=== PATIENT | female | born 1950 | race African-American/Black ===

== ENCOUNTER 2018-11-30 05:21 | Day surgery (SDC) | payer MEDICARE, MEDICAID ==
[~2018-11-30] VITALS: Ht 168.9 cm; Wt 78.9 kg
[~2018-11-30 05:21] MED LIST: ALLO100T PO; BUSP10TA3 PO; CHOL500010 PO; DIPH25CA83 PO; LISI10TA5 PO; LORA0.5T2 PO; LORA10TA7 PO; METH500T PO; OXYB5TAB11 PO; PROP10TA10 PO; RANI150T7 PO; TRAM50TA3 PO; VENL-180 PO; ZIPR40CA2 PO
[2018-11-30] MEDS ORDERED: LACTATED RINGERS 1,000 ML IV SCH (06:21)
[2018-11-30] MEDS ORDERED: LISI40TA4 PO (06:59)
[2018-11-30] MEDS ORDERED: TERB250T51 PO (06:59)
[2018-11-30] MEDS ORDERED: CLON0.5T PO (06:59)
[2018-11-30] MEDS ORDERED: CALC-25 PO (06:59)
[2018-11-30] MEDS ORDERED: LIDOCAINE HCL/PF 1% 10 MG/ML 5ML VIAL ONE (07:16)
[2018-11-30] MEDS ORDERED: MIDAZOLAM HCL 2 MG/2 ML VIAL ONE (07:16)
[2018-11-30] MEDS ORDERED: PROPOFOL 200MG/20ML VIAL IV ONE (07:16)
[2018-11-30] MEDS ORDERED: FENTANYL CITRATE/PF 50MCG/ML 2ML VIAL ONE (07:16)
[2018-11-30 07:50] LABS: BASOPHILS % 0.5 % (0.0-2.0); EOSINOPHILS % 3.1 % (0.0-5.0); HEMATOCRIT. 32.2 % (36.0-48.0); HEMOGLOBIN. 10.9 g/dL (12.0-16.0); LYMPHOCYTES % 45.9 % (20.0-50.0); MEAN CORPUSCULAR HEMOGLOBIN 32.8 pg (28.0-32.0); MEAN PLATELET VOLUME 9.5 fl (7.4-10.4); MONOCYTES % 9.7 % (2.0-8.0); NEUTROPHILS % 40.8 % (40.0-76.0); PLATELET 198 x1000/uL (130-400); RED BLOOD CELL COUNT 3.32 mill/uL (4.2-5.4); RED CELL DISTRIBUTION WIDTH 13.1 % (11.6-14.6)
[2018-11-30 07:51] LABS: CLARITY URINE CLOUDY (CLEAR); COLOR URINE YELLOW (YELLOW); KETONES URINE NEGATIVE (NEGATIVE); LEUKOCYTE ESTERASE URINE 3+ (NEGATIVE); NITRITE URINE NEGATIVE (NEGATIVE); OCCULT BLOOD URINE NEGATIVE (NEGATIVE); PH URINE 5.5 (4.5-8.0); PROTEIN URINE NEGATIVE (NEGATIVE); SPECIFIC GRAVITY URINE 1.016 (1.005-1.030); UROBILINOGEN URINE 0.2 E.U./dL (0.2-1.0)
[2018-11-30 07:57] LABS: CHLORIDE 108 mEq/L (98-107)
[2018-11-30 08:02] LABS: PARTIAL THROMBOPLASTIN TIME 28.9 sec (23.4-31.0); PROTHROMBIN TIME 10.8 sec (9.6-11.0)
[2018-11-30] MEDS ORDERED: CEFAZOLIN SODIUM 1000MG/VIAL ONE (08:08)
== END 2018-11-30 11:05 | disposition home or self-care (01) ==
LOC: OR 05:21
PROVIDERS: ATTEND Obstetrics & Gynecology Obstetrics
DX: N84.0 Polyp of corpus uteri (principal); R94.31 Abnormal electrocardiogram [ECG] [EKG]; F17.210 Nicotine dependence, cigarettes, uncomplicated; Z78.0 Asymptomatic menopausal state; Z79.01 Long term (current) use of anticoagulants; Z79.899 Other long term (current) drug therapy; Z72.89 Other problems related to lifestyle; Z88.2 Allergy status to sulfonamides; Z82.49 Family history of ischemic heart disease and other diseases of the circulatory system; Z83.3 Family history of diabetes mellitus
CPT/HCPCS: 36415; 58558; 80053; 81003; 85025; 85610; 85730; 87086; 88305; 93005; J0690; J2250; J2704; J3010; J3490

== ENCOUNTER 2019-04-24 05:29 | Inpatient (IN) | payer MEDICARE, MEDICAID ==
[~2019-04-24] VITALS: Ht 172.7 cm; Wt 89.4 kg
[~2019-04-24 05:29] MED LIST changes: -BUSP10TA3 PO; +CALC-25 PO; +CLON0.5T PO; -LISI10TA5 PO; +LISI40TA4 PO; -LORA0.5T2 PO; -OXYB5TAB11 PO; +OXYB5TAB16 PO; +TERB250T51 PO
[2019-04-24] MEDS ORDERED: LACTATED RINGERS 1,000 ML IV SCH ×2 (06:30→11:24)
[2019-04-24] MEDS ORDERED: METHYLENE BLUE 50 MG/10 ML AMP IV ONE (06:41)
[2019-04-24] MEDS ORDERED: SKIN ADHESIVE 0.7 GM EA TOP ONE (06:41)
[2019-04-24] MEDS ORDERED: BUPIVACAINE HCL/PF 0.5% (5MG/ML) 10ML ONE (06:42)
[2019-04-24] MEDS ORDERED: VASOPRESSIN 20 UNIT/ML 1ML ONE (06:42)
[2019-04-24] MEDS ORDERED: FENTANYL CITRATE/PF 50MCG/ML 2ML VIAL ONE (07:21)
[2019-04-24] MEDS ORDERED: NEOSTIGMINE METHYLSULFATE 1MG/ML 10 ML VIAL ONE (07:22)
[2019-04-24] MEDS ORDERED: MIDAZOLAM HCL 2 MG/2 ML VIAL ONE (07:22)
[2019-04-24] MEDS ORDERED: ROCURONIUM BROMIDE 10MG/ML VIAL 5ML IV ONE (07:22)
[2019-04-24] MEDS ORDERED: PROPOFOL 200MG/20ML VIAL IV ONE (07:22)
[2019-04-24] MEDS ORDERED: GLYCOPYRROLATE 0.2 MG/ML 2ML VIAL ONE ×3 (07:22→11:03)
[2019-04-24] MEDS ORDERED: DEXAMETHASONE 4MG/ML 1ML VIAL ONE (07:24)
[2019-04-24] MEDS ORDERED: ONDANSETRON HCL 4MG/2ML INJ ONE (07:24)
[2019-04-24] MEDS ORDERED: LABETALOL 5MG/ML SYR 20 MG/4 ML SYRINGE IV PRN (08:15)
[2019-04-24] MEDS ORDERED: MEPERIDINE HCL/PF 25MG/ML CPJ IV PRN (08:15)
[2019-04-24] MEDS ORDERED: ONDANSETRON HCL 4MG/2ML INJ IV PRN (08:15)
[2019-04-24] MEDS ORDERED: HYDROMORPHONE HCL/PF 2MG/ML CPJ IV PRN (08:15)
[2019-04-24] MEDS ORDERED: BACITRACIN 15GM TUBE TOP ONE (10:56)
[2019-04-24] MEDS ORDERED: HYDRALAZINE 20MG/ML VIAL ONE (11:13)
[2019-04-24] MEDS ORDERED: SODIUM CHLORIDE 0.9% 10ML VIAL ONE (11:13)
[2019-04-24] MEDS ORDERED: LIDOCAINE HCL/PF 1% 10 MG/ML 5ML VIAL ONE (11:13)
[2019-04-24] MEDS ORDERED: CEFAZOLIN SODIUM 1000MG/VIAL ONE (11:13)
[2019-04-24] MEDS ORDERED: EPHEDRINE SULFATE 50MG/ML VIAL ONE (11:13)
[2019-04-24] MEDS ORDERED: HYDROMORPHONE PCA 10MG/50ML IV PRN (11:38)
[2019-04-24] MEDS ORDERED: NALOXONE INJ IV PRN (11:45)
[2019-04-24] MEDS ORDERED: ONDANSETRON INJ IV PRN (11:45)
[2019-04-24] MEDS ORDERED: DIPHENHYDRAMINE INJ IV PRN (11:45)
[2019-04-24 12:00] VITALS: BP 108/55
[2019-04-24 14:15] VITALS: BP 133/61
[2019-04-24 16:00] VITALS: BP 91/57
[2019-04-24 20:00] VITALS: BP 108/60
[2019-04-25] VITALS: BP 133/59
[2019-04-25 04:00] VITALS: BP 119/62
[2019-04-25 06:06] LABS: BASOPHILS % 0.1 % (0.0-2.0); HEMATOCRIT. 29.4 % (36.0-48.0); HEMOGLOBIN. 9.9 g/dL (12.0-16.0); MEAN CORPUSCULAR HEMOGLOBIN 33.2 pg (28.0-32.0); MEAN CORPUSCULAR VOLUME 98.6 fL (81.0-99.0); MEAN PLATELET VOLUME 9.8 fl (7.4-10.4); NEUTROPHILS % 78.9 % (40.0-76.0); PLATELET 206 x1000/uL (130-400); RED BLOOD CELL COUNT 2.98 mill/uL (4.2-5.4)
[2019-04-25 08:00] VITALS: BP 143/72
[2019-04-25] MEDS ORDERED: MEDICATION NOT ON FORMULARY EA (Cholecalciferol (Vitamin D3) (Vitamin D3) 2,000 UNIT) PO SCH (09:15)
[2019-04-25] MEDS ORDERED: TRAMADOL 50MG TABLET PO PRN ×2 (09:15→18:15)
[2019-04-25] MEDS ORDERED: LORATADINE 10MG TABLET PO SCH (09:15)
[2019-04-25] MEDS ORDERED: CLONAZEPAM 0.5MG TABLET PO SCH (09:15)
[2019-04-25] MEDS ORDERED: DIPHENHYDRAMINE 25MG CAPSULE PO SCH (09:15)
[2019-04-25] MEDS ORDERED: MEDICATION NOT ON FORMULARY EA (Ranitidine Hcl 150 MG) PO SCH (09:15)
[2019-04-25] MEDS: LISINOPRIL 40MG TABLET PO SCH (10:43)
[2019-04-25] MEDS: CALCIUM CARBONATE 1250MG TABLET (500MG ELEMENTAL CALCIUM) PO SCH (10:43)
[2019-04-25] MEDS: ALLOPURINOL 100 MG TABLET PO SCH (10:44)
[2019-04-25] MEDS: OXYBUTYNIN CHLORIDE 5MG TABLET PO SCH ×3 (10:44→16:09)
[2019-04-25] MEDS: METHOCARBAMOL 500MG TABLET PO SCH ×3 (10:44→16:09)
[2019-04-25] MEDS: PROPRANOLOL HCL 10MG TABLET PO SCH ×2 (10:44→20:23)
[2019-04-25] MEDS ORDERED: TERBINAFINE HCL 250MG TABLET PO SCH (11:00)
[2019-04-25 12:00] VITALS: BP 120/65
[2019-04-25] MEDS: TERBINAFINE HCL 250MG TABLET PO SCH (15:18)
[2019-04-25 16:00] VITALS: BP 122/68
[2019-04-25] MEDS: CHOLECALCIFEROL (D3) 1000 UNIT TABLET PO SCH (16:09)
[2019-04-25] MEDS: FAMOTIDINE 20MG TABLET PO SCH (16:09)
[2019-04-25] MEDS: VENLAFAXINE HCL 37.5MG TABLET PO SCH (16:12)
[2019-04-25] MEDS ORDERED: CLONAZEPAM 0.5MG TABLET PO PRN (18:15)
[2019-04-25] MEDS ORDERED: LORATADINE 10MG TABLET PO PRN (18:15)
[2019-04-25 20:00] VITALS: BP 110/60
[2019-04-25] MEDS ORDERED: VENLAFAXINE HCL 50MG TABLET PO SCH ×2 (21:00)
[2019-04-25] MEDS ORDERED: DIPHENHYDRAMINE 25MG CAPSULE PO PRN (21:00)
[2019-04-25] MEDS ORDERED: ZIPRASIDONE HCL 20MG CAPSULE PO SCH (21:00)
[2019-04-26] VITALS: BP 129/63
[2019-04-26 04:00] VITALS: BP 131/66
[2019-04-26 08:00] VITALS: BP 130/58
[2019-04-26] MEDS: OXYBUTYNIN CHLORIDE 5MG TABLET PO SCH (08:46)
[2019-04-26] MEDS: PROPRANOLOL HCL 10MG TABLET PO SCH (08:46)
[2019-04-26] MEDS: VENLAFAXINE HCL 37.5MG TABLET PO SCH (08:46)
[2019-04-26] MEDS: ALLOPURINOL 100 MG TABLET PO SCH (08:47)
[2019-04-26] MEDS: TERBINAFINE HCL 250MG TABLET PO SCH (08:47)
[2019-04-26] MEDS: METHOCARBAMOL 500MG TABLET PO SCH (08:47)
[2019-04-26] MEDS: CHOLECALCIFEROL (D3) 1000 UNIT TABLET PO SCH (08:47)
[2019-04-26] MEDS: FAMOTIDINE 20MG TABLET PO SCH (08:47)
[2019-04-26] MEDS: CALCIUM CARBONATE 1250MG TABLET (500MG ELEMENTAL CALCIUM) PO SCH (08:47)
[2019-04-26] MEDS: LISINOPRIL 40MG TABLET PO SCH (08:47)
[2019-04-26 11:04] VITALS: BP 100/61
== END 2019-04-26 12:30 | disposition home or self-care (01) | DRG 743 ==
LOC: OR 05:29 → 6EST 05:30
PROVIDERS: ADMIT Obstetrics & Gynecology Obstetrics; ATTEND Obstetrics & Gynecology Obstetrics
PROC: 0UT9FZZ Resection of Uterus, Via Natural or Artificial Opening With Percutaneous Endoscopic Assistance (ICD-10-PCS; principal; 2019-04-24)
PROC: 0UT2FZZ Resection of Bilateral Ovaries, Via Natural or Artificial Opening With Percutaneous Endoscopic Assistance (ICD-10-PCS; 2019-04-24)
PROC: 0UT7FZZ Resection of Bilateral Fallopian Tubes, Via Natural or Artificial Opening With Percutaneous Endoscopic Assistance (ICD-10-PCS; 2019-04-24)
PROC: 0TSC4ZZ Reposition Bladder Neck, Percutaneous Endoscopic Approach (ICD-10-PCS; 2019-04-24)
PROC: 0JQC3ZZ Repair Pelvic Region Subcutaneous Tissue and Fascia, Percutaneous Approach (ICD-10-PCS; 2019-04-24)
DX: N81.4 Uterovaginal prolapse, unspecified (principal); N39.3 Stress incontinence (female) (male); F32.9 Major depressive disorder, single episode, unspecified; I10 Essential (primary) hypertension; K21.9 Gastro-esophageal reflux disease without esophagitis; Z80.3 Family history of malignant neoplasm of breast; Z90.710 Acquired absence of both cervix and uterus; Z83.3 Family history of diabetes mellitus; Z87.891 Personal history of nicotine dependence; Z88.2 Allergy status to sulfonamides
CPT/HCPCS: 36415; 85025; 86850; 86900; 86920; 88305; 88307; C1893; J0360; J0690; J1100; J1170; J2250; J2405; J2704; J2710; J3010; J3490; J7040; Q9968